=== PATIENT | male | born 1965 | race Caucasian/White ===

== ENCOUNTER → 2019-05-23 | Outpatient (CLI) | payer BC ==
[~2019-05-23] MED LIST: ADVAIR DISKUS1 DS1 IH; ALLEGRA 60MG TA60 MG PO; MUCINEX1200 MG PO; PREVACID SOLUTA15 M1 PO; SINGULAIR 110 MG/TAB PO; SINGULAIR4 MG PO; [UNRECOGNIZED DRUG - CODE] ID; [UNRECOGNIZED DRUG - OTHER] NS
== END ==
LOC: COL.RAD 11:49
DX: R22.9 Localized swelling, mass and lump, unspecified (principal)

== ENCOUNTER → 2019-10-17 | Outpatient (CLI) | payer BC | LOC: COL.RAD 07:15 | DX: M79.3 Panniculitis, unspecified (principal) ==